=== PATIENT | female | born 1950 | race African-American/Black ===

== ENCOUNTER 2017-10-29 09:32 | Inpatient (IN) ==
[2017-10-29] MEDS ORDERED: HYDROmorphone 2 MG/1 ML VIAL IV STA ×2 (10:18→12:58)
[2017-10-29] MEDS ORDERED: ONDANSETRON 4 MG/2 ML VIAL IV STA ×2 (10:18→12:58)
[2017-10-29] MEDS ORDERED: SODIUM CHLORIDE 0.9% 1,000 ML IV STA (10:18)
[2017-10-29] MEDS ORDERED: ONDANSETRON 4 MG/2 ML VIAL ONE ×2 (10:55→13:14)
[2017-10-29] MEDS ORDERED: HYDROmorphone 2 MG/1 ML VIAL ONE (10:55)
[2017-10-29 10:56] LABS: Basophils # 0.1 10*3/uL (0.0-0.2); Basophils % 0.5 % (0.0-0.8); Eosinophils % 0.1 % (0.00-10.9); Hematocrit 31.3 VOL% (35.7-47.0); Hemoglobin 10.9 GM/DL (12.0-16.0); Immature Granulocytes % 12.5 %; Immature Granulocytes Absolute 3.06 #; Lymphocytes # 2.1 10*3/uL (1.4-4.0); Lymphocytes % 8.7 % (21.3-54.2); Mean Corpuscular HGB Conc 34.8 GM/DL (32-36); Mean Corpuscular Hemoglobin 29 PG (27-34); Mean Corpuscular Volume 84.1 FL (87-102); Mean Platelet Volume 12.6 FL (9.6-12.0); Monocytes # 0.8 10*3/uL (0.11-0.8); Monocytes % 3.2 % (1.7-12.7); Neutrophils # 18.4 10*3/uL (1.4-7.4); Platelet Count 124 T/CUMM (130-400); Red Blood Count 3.72 MC/CUMM (3.8-5.5); Red Cell Distribution Width 16.6 % (9.3-17.3); White Blood Count 24.5 T/CUMM (4-12)
[2017-10-29 11:23] LABS: Albumin 4.3 G/DL (3.4-5.0); Bilirubin,Total 1.2 MG/DL (0.2-1.0); Calcium 10.2 MG/DL (8.5-10.1); Osmolality,Calculated 294.1 MOS/KG (273-304); Potassium 4.3 MMOL/L (3.5-5.1); Total Protein 8.1 G/DL (6.4-8.3)
[2017-10-29 11:47] LABS: Apearance,Urine CLEAR (Clear); Bacteria,Urine Occasional /HPF (Few); Bilirubin,Urine Negative (Negative); Blood, Urine Small mg/dL (Negative); Glucose,Urine (UA) Negative (Negative); Hyaline Casts,Urine 2 /LPF (0-3); Ketones,Urine Negative (Negative); Mucus,Urine Occasional /LPF (Occasional); Nitrite,Urine Negative (Negative); Protein,Urine 30 MG/DL; Squamous Epithelial Cell,Urine Occasional /HPF (0-10); Urine Color Yellow (Yellow); Urine Urobilinogen < 2.0 EU/DL (0.2-1.0); WBC,Urine 1 /HPF (0-6)
[2017-10-29 11:54] LABS: Band Neutrophils 5 % (0-10); Hypochromasia 1+; Lymphocytes 9 % (20-55); Polychromasia Slight; Segmented Neutrophils 80 % (50-85); Total Cells Counted 100
[2017-10-29 11:55] LABS: Platelet Estimate Decreased
[2017-10-29] MEDS ORDERED: cefTRIAXone 500 MG VIAL ONE (12:13)
[2017-10-29] MEDS ORDERED: diphenhydrAMINE CAP 25 MG CAPSULE PO PRN (13:22)
[2017-10-29] MEDS ORDERED: ONDANSETRON 4 MG/2 ML VIAL IV PRN (13:22)
[2017-10-29] MEDS ORDERED: METHYLPREDNISOLONE 4 MG PO SCH (16:30)
[2017-10-29] MEDS: SODIUM CHLORIDE 0.45% 1,000 ML IV SCH (17:07)
[2017-10-29] MEDS: guaiFENesin/DM ER 600-30 MG TABLET PO SCH (17:14)
[2017-10-29] MEDS: IBUPROFEN 800 MG TABLET PO SCH (20:48)
[2017-10-29] MEDS: DILTIAZEM CD 180 MG CAPSULE PO SCH (20:48)
[2017-10-29] MEDS: PANTOPRAZOLE 40 MG TABLET PO SCH (20:49)
[2017-10-30] MEDS: guaiFENesin/DM ER 600-30 MG TABLET PO SCH ×4 (00:46→17:42)
[2017-10-30 07:14] LABS: Basophils % 0.2 % (0.0-0.8); Eosinophils # 0.3 10*3/uL (0.0-0.87); Eosinophils % 1.6 % (0.00-10.9); Hematocrit 23.9 VOL% (35.7-47.0); Hemoglobin 8.5 GM/DL (12.0-16.0); Immature Granulocytes % 5.9 %; Immature Granulocytes Absolute 0.96 #; Lymphocytes # 2.4 10*3/uL (1.4-4.0); Lymphocytes % 14.5 % (21.3-54.2); Mean Corpuscular HGB Conc 35.6 GM/DL (32-36); Mean Corpuscular Hemoglobin 29 PG (27-34); Mean Corpuscular Volume 82.1 FL (87-102); Mean Platelet Volume 11.9 FL (9.6-12.0); Monocytes # 0.6 10*3/uL (0.11-0.8); Monocytes % 3.6 % (1.7-12.7); NRBC # 0.26 10*3/uL; Neutrophils # 12.1 10*3/uL (1.4-7.4); Neutrophils % 74.2 % (38.7-73.9); Red Blood Count 2.91 MC/CUMM (3.8-5.5); Red Cell Distribution Width 16.3 % (9.3-17.3); White Blood Count 16.3 T/CUMM (4-12)
[2017-10-30 07:19] LABS: Platelet Count 64 T/CUMM (130-400)
[2017-10-30 07:35] LABS: Hypochromasia 2+; Macrocytosis 1+; Target Cells Slight
[2017-10-30 07:36] LABS: Polychromasia Slight
[2017-10-30 08:14] LABS: Albumin 3.4 G/DL (3.4-5.0); Bilirubin,Total 1.8 MG/DL (0.2-1.0); Calcium 8.6 MG/DL (8.5-10.1); Magnesium 1.8 MG/DL (1.8-2.4); Osmolality,Calculated 293.3 MOS/KG (273-304); Potassium 4.3 MMOL/L (3.5-5.1); Total Protein 6.4 G/DL (6.4-8.3)
[2017-10-30] MEDS ORDERED: PANTOPRAZOLE 40 MG TABLET PO SCH (09:00)
[2017-10-30] MEDS: DILTIAZEM CD 180 MG CAPSULE PO SCH ×2 (09:31→20:47)
[2017-10-30] MEDS: IBUPROFEN 800 MG TABLET PO SCH ×3 (09:34→20:47)
[2017-10-30] MEDS: ATENOLOL 100 MG TABLET PO SCH (09:35)
[2017-10-30] MEDS: PANTOPRAZOLE 40 MG TABLET PO SCH ×2 (09:35→20:47)
[2017-10-30] MEDS: CALCITRIOL 0.25 MCG CAPSULE PO SCH (09:35)
[2017-10-30] MEDS: SODIUM CHLORIDE 0.45% 1,000 ML IV SCH ×2 (09:37→18:17)
[2017-10-30] MEDS: VALSARTAN/HCTZ 80-12.5 MG TABLET PO SCH (13:08)
[2017-10-30 13:53] LABS: Hepatitis A Ab IgM Quant 0.13 Index; Hepatitis A Ab IgM Result Negative (Negative); Hepatitis B Core IgM Quant 0.15 Index; Hepatitis B Core IgM Result Negative (Negative); Hepatitis B Surface Ag Quant 0.15 Index; Hepatitis B Surface Ag Result Negative (Negative); Hepatitis C Virus Ab Quant 0.14 Index; Hepatitis C Virus Ab Result Negative (Negative)
[2017-10-31] MEDS: guaiFENesin/DM ER 600-30 MG TABLET PO SCH ×5 (02:14→23:56)
[2017-10-31] MEDS: SODIUM CHLORIDE 0.45% 1,000 ML IV SCH ×5 (02:34→17:11)
[2017-10-31 05:11] LABS: Basophils % 0.3 % (0.0-0.8); Eosinophils # 0.7 10*3/uL (0.0-0.87); Eosinophils % 4.3 % (0.00-10.9); Hematocrit 21.5 VOL% (35.7-47.0); Hemoglobin 7.6 GM/DL (12.0-16.0); Immature Granulocytes % 4.4 %; Immature Granulocytes Absolute 0.67 #; Lymphocytes # 2.4 10*3/uL (1.4-4.0); Lymphocytes % 15.9 % (21.3-54.2); Mean Corpuscular HGB Conc 35.3 GM/DL (32-36); Mean Corpuscular Hemoglobin 29 PG (27-34); Mean Corpuscular Volume 81.4 FL (87-102); Mean Platelet Volume 12.4 FL (9.6-12.0); Monocytes # 0.7 10*3/uL (0.11-0.8); Monocytes % 4.5 % (1.7-12.7); NRBC # 0.33 10*3/uL; Neutrophils # 10.7 10*3/uL (1.4-7.4); Neutrophils % 70.6 % (38.7-73.9); Platelet Count 52 T/CUMM (130-400); Red Blood Count 2.64 MC/CUMM (3.8-5.5); Red Cell Distribution Width 16.7 % (9.3-17.3); White Blood Count 15.1 T/CUMM (4-12)
[2017-10-31 05:47] LABS: Band Neutrophils 2 % (0-10); Eosinophils 5 % (0-10); Lymphocytes 11 % (20-55); Nucleated Red Blood Cells 6 (0-5); Segmented Neutrophils 79 % (50-85); Total Cells Counted 100
[2017-10-31 05:48] LABS: Hypochromasia Slight; Microcytosis 1+; Platelet Estimate Decreased; Polychromasia Slight; Target Cells Slight
[2017-10-31 05:50] LABS: Albumin 3.1 G/DL (3.4-5.0); Calcium 8.3 MG/DL (8.5-10.1); Osmolality,Calculated 287.5 MOS/KG (273-304); Potassium 4.4 MMOL/L (3.5-5.1); Total Protein 5.9 G/DL (6.4-8.3)
[2017-10-31] MEDS ORDERED: SODIUM CHLORIDE 0.9% 1,000 ML IV PRN (08:19)
[2017-10-31] MEDS: DILTIAZEM CD 180 MG CAPSULE PO SCH ×2 (08:24→20:45)
[2017-10-31] MEDS: CALCITRIOL 0.25 MCG CAPSULE PO SCH (08:24)
[2017-10-31] MEDS: IBUPROFEN 800 MG TABLET PO SCH ×3 (08:24→20:45)
[2017-10-31] MEDS: ATENOLOL 100 MG TABLET PO SCH (08:26)
[2017-10-31] MEDS: VALSARTAN/HCTZ 80-12.5 MG TABLET PO SCH (08:26)
[2017-10-31] MEDS: PANTOPRAZOLE 40 MG TABLET PO SCH ×2 (08:26→20:45)
[2017-10-31] MEDS: MORPHINE 2 MG/1 ML SYRINGE IV PRN (17:08)
[2017-10-31] MEDS ORDERED: ENOXAPARIN 80 MG/0.8 ML SYRINGE SUBCUT SCH (18:00)
[2017-11-01 04:55] LABS: Basophils % 0.3 % (0.0-0.8); Eosinophils # 0.5 10*3/uL (0.0-0.87); Eosinophils % 4.5 % (0.00-10.9); Hematocrit 27.5 VOL% (35.7-47.0); Hemoglobin 9.8 GM/DL (12.0-16.0); Immature Granulocytes % 2.2 %; Immature Granulocytes Absolute 0.25 #; Lymphocytes # 1.8 10*3/uL (1.4-4.0); Lymphocytes % 16.2 % (21.3-54.2); Mean Corpuscular HGB Conc 35.6 GM/DL (32-36); Mean Corpuscular Hemoglobin 29 PG (27-34); Mean Corpuscular Volume 80.2 FL (87-102); Monocytes # 0.5 10*3/uL (0.11-0.8); NRBC # 0.27 10*3/uL; Neutrophils # 8.2 10*3/uL (1.4-7.4); Neutrophils % 72.8 % (38.7-73.9); Red Blood Count 3.43 MC/CUMM (3.8-5.5); Red Cell Distribution Width 15.9 % (9.3-17.3); White Blood Count 11.3 T/CUMM (4-12)
[2017-11-01 05:26] LABS: Albumin 2.9 G/DL (3.4-5.0); Bilirubin,Total 2.4 MG/DL (0.2-1.0); Osmolality,Calculated 288.4 MOS/KG (273-304); Potassium 4.2 MMOL/L (3.5-5.1); Total Protein 5.9 G/DL (6.4-8.3)
[2017-11-01 05:48] LABS: Platelet Count 37 T/CUMM (130-400)
[2017-11-01 05:54] LABS: Hypochromasia 1+
[2017-11-01 05:55] LABS: Microcytosis 1+; Platelet Estimate Decreased; Polychromasia Slight; Spherocytes Slight; Target Cells Slight
[2017-11-01] MEDS: guaiFENesin/DM ER 600-30 MG TABLET PO SCH ×3 (06:23→18:04)
[2017-11-01] MEDS: MORPHINE 2 MG/1 ML SYRINGE IV PRN (07:26)
[2017-11-01] MEDS: methylPREDNISolone SOD SUC 125 MG/2 ML VIAL IV SCH ×2 (09:47→21:03)
[2017-11-01] MEDS: IBUPROFEN 800 MG TABLET PO SCH ×3 (09:47→21:02)
[2017-11-01] MEDS: ATENOLOL 100 MG TABLET PO SCH (09:47)
[2017-11-01] MEDS: DILTIAZEM CD 180 MG CAPSULE PO SCH ×2 (09:48→21:02)
[2017-11-01] MEDS: VALSARTAN/HCTZ 80-12.5 MG TABLET PO SCH (09:48)
[2017-11-01] MEDS: PANTOPRAZOLE 40 MG TABLET PO SCH ×2 (09:48→21:02)
[2017-11-01] MEDS: CALCITRIOL 0.25 MCG CAPSULE PO SCH (09:48)
[2017-11-02] MEDS: guaiFENesin/DM ER 600-30 MG TABLET PO SCH ×2 (01:12→06:18)
[2017-11-02 03:35] LABS: Basophils % 0.2 % (0.0-0.8); Eosinophils % 0.2 % (0.00-10.9); Hematocrit 28.9 VOL% (35.7-47.0); Hemoglobin 10.1 GM/DL (12.0-16.0); Immature Granulocytes % 5.1 %; Immature Granulocytes Absolute 0.64 #; Lymphocytes % 15.5 % (21.3-54.2); Mean Corpuscular HGB Conc 34.9 GM/DL (32-36); Mean Corpuscular Hemoglobin 29 PG (27-34); Mean Corpuscular Volume 82.3 FL (87-102); Monocytes # 0.2 10*3/uL (0.11-0.8); Monocytes % 1.8 % (1.7-12.7); NRBC # 0.29 10*3/uL; Neutrophils # 9.8 10*3/uL (1.4-7.4); Neutrophils % 77.2 % (38.7-73.9); Red Blood Count 3.51 MC/CUMM (3.8-5.5); Red Cell Distribution Width 16.4 % (9.3-17.3); White Blood Count 12.6 T/CUMM (4-12)
[2017-11-02 03:38] LABS: INR 0.9
[2017-11-02 03:45] LABS: Platelet Count 38 T/CUMM (130-400)
[2017-11-02 04:06] LABS: Albumin 3.3 G/DL (3.4-5.0); Bilirubin,Total 1.7 MG/DL (0.2-1.0); Calcium 8.6 MG/DL (8.5-10.1); Osmolality,Calculated 301.1 MOS/KG (273-304); Potassium 4.3 MMOL/L (3.5-5.1); Total Protein 6.4 G/DL (6.4-8.3)
[2017-11-02 04:26] LABS: Band Neutrophils 23 % (0-10); Lymphocytes 15 % (20-55); Segmented Neutrophils 60 % (50-85); Total Cells Counted 100
[2017-11-02 04:27] LABS: Anisocytosis 1+; Poikilocytosis 1+; Polychromasia 1+; Target Cells 1+
[2017-11-02] MEDS: PANTOPRAZOLE 40 MG TABLET PO SCH (09:48)
[2017-11-02] MEDS: CALCITRIOL 0.25 MCG CAPSULE PO SCH (09:48)
[2017-11-02] MEDS: DILTIAZEM CD 180 MG CAPSULE PO SCH (09:49)
[2017-11-02] MEDS: ATENOLOL 100 MG TABLET PO SCH (09:49)
[2017-11-02] MEDS: VALSARTAN/HCTZ 80-12.5 MG TABLET PO SCH (09:50)
[2017-11-02] MEDS: IBUPROFEN 800 MG TABLET PO SCH (09:50)
[2017-11-02] MEDS: methylPREDNISolone SOD SUC 125 MG/2 ML VIAL IV SCH (09:50)
[2017-11-02 12:43] VITALS: BP 166/73
[2017-11-07 10:01] LABS: Variant 50.5 = Hb S %
[2017-11-07 11:08] LABS: Hemoglobin C (Alkaline) 45.1 %; Hemoglobin F (Alkaline) 7.9 %
== END 2017-11-02 13:00 | disposition home or self-care (01) | DRG 812 ==
LOC: N.ED 09:32 → N.EDINP 12:16 → N.4E 14:32
PROVIDERS: ADMIT Internal Medicine; ATTEND Internal Medicine

== ENCOUNTER 2018-04-13 19:38 | Inpatient (IN) ==
[2018-04-13] MEDS ORDERED: SODIUM CHLORIDE 0.9% 1,000 ML IV STA (20:10)
[2018-04-13] MEDS ORDERED: fentaNYL 100 MCG/2 ML VIAL IV STA (20:10)
[2018-04-13] MEDS ORDERED: hydrALAZINE 20 MG/1 ML VIAL IV STA (20:10)
[2018-04-13 20:37] LABS: Basophils # 0.1 10*3/uL (0.0-0.2); Basophils % 0.3 % (0.0-0.8); Eosinophils # 0.1 10*3/uL (0.0-0.87); Eosinophils % 0.3 % (0.00-10.9); Hematocrit 29.7 VOL% (35.7-47.0); Hemoglobin 10.4 GM/DL (12.0-16.0); Immature Granulocytes Absolute 2.98 #; Lymphocytes # 3.2 10*3/uL (1.4-4.0); Lymphocytes % 13.8 % (21.3-54.2); Mean Corpuscular Hemoglobin 30 PG (27-34); Mean Corpuscular Volume 86.6 FL (87-102); Mean Platelet Volume 11.9 FL (9.6-12.0); Monocytes # 1.1 10*3/uL (0.11-0.8); Monocytes % 4.7 % (1.7-12.7); NRBC # 0.19 10*3/uL; Neutrophils # 15.6 10*3/uL (1.4-7.4); Neutrophils % 67.9 % (38.7-73.9); Platelet Count 176 T/CUMM (130-400); Red Blood Count 3.43 MC/CUMM (3.8-5.5); Red Cell Distribution Width 16.7 % (9.3-17.3)
[2018-04-13 20:55] LABS: Albumin 3.6 G/DL (3.4-5.0); Bilirubin,Total 0.7 MG/DL (0.2-1.0); Calcium 9.2 MG/DL (8.5-10.1); Potassium 3.9 MMOL/L (3.5-5.1); Total Protein 7.2 G/DL (6.4-8.3)
[2018-04-13 21:03] LABS: Band Neutrophils 3 % (0-10); Eosinophils 1 % (0-10); Lymphocytes 14 % (20-55); Nucleated Red Blood Cells 1 (0-5); Segmented Neutrophils 75 % (50-85); Total Cells Counted 100
[2018-04-13 21:04] LABS: Hypochromasia Slight; Platelet Estimate Adequate; Polychromasia Slight; Target Cells Few; Tear Drop Cells Slight
[2018-04-13 21:23] LABS: Apearance,Urine CLEAR (Clear); Bacteria,Urine Occasional /HPF (Few); Bilirubin,Urine Negative (Negative); Blood, Urine Negative (Negative); Glucose,Urine (UA) Negative (Negative); Ketones,Urine Negative (Negative); Mucus,Urine Occasional /LPF (Occasional); Nitrite,Urine Negative (Negative); Protein,Urine Negative; RBC,Urine <1 /HPF (0-4); Squamous Epithelial Cell,Urine Occasional /HPF (0-10); Urine Color Yellow (Yellow); Urine Specific Gravity 1.009 (1.001-1.035); Urine Urobilinogen < 2.0 EU/DL (0.2-1.0); WBC,Urine <1 /HPF (0-6)
[2018-04-13] MEDS ORDERED: ONDANSETRON 4 MG/2 ML VIAL IV STA (21:33)
[2018-04-13] MEDS ORDERED: MORPHINE 4 MG/1 ML VIAL IV STA (21:33)
[2018-04-13] MEDS ORDERED: MORPHINE 4 MG/1 ML VIAL ONE (21:34)
[2018-04-13 22:09] LABS: Lactic Acid 2.6 MMOL/L (0.4-2.0)
[2018-04-13] MEDS ORDERED: PIPERACILLIN/TAZOBACTAM 3,375 MG in SODIUM CHLORIDE 0.9% 100 ML IV STA (22:28)
[2018-04-14] MEDS ORDERED: ONDANSETRON 4 MG/2 ML VIAL IV PRN (00:13)
[2018-04-14] MEDS: SODIUM CHLORIDE 0.45% 1,000 ML IV SCH ×3 (02:20→19:05)
[2018-04-14 02:37] LABS: Lactic Acid 2.5 MMOL/L (0.4-2.0)
[2018-04-14] MEDS: MORPHINE 4 MG/1 ML VIAL IV PRN ×3 (03:56→16:21)
[2018-04-14] MEDS: hydroCHLOROthiazide 25 MG TABLET PO SCH (08:45)
[2018-04-14] MEDS: ATENOLOL 100 MG TABLET PO SCH (08:45)
[2018-04-14] MEDS: ENOXAPARIN 40 MG/0.4 ML SYRINGE SUBCUT SCH (08:45)
[2018-04-14] MEDS: CALCITRIOL 0.25 MCG CAPSULE PO SCH (08:45)
[2018-04-14] MEDS: VALSARTAN 160 MG TABLET PO SCH (08:46)
[2018-04-14] MEDS: PANTOPRAZOLE 40 MG TABLET PO SCH (08:46)
[2018-04-14] MEDS: DILTIAZEM CD 180 MG CAPSULE PO SCH ×2 (08:46→20:50)
[2018-04-14 09:05] LABS: Basophils # 0.1 10*3/uL (0.0-0.2); Basophils % 0.3 % (0.0-0.8); Eosinophils % 0.2 % (0.00-10.9); Hematocrit 27.3 VOL% (35.7-47.0); Hemoglobin 9.8 GM/DL (12.0-16.0); Immature Granulocytes % 9.4 %; Immature Granulocytes Absolute 1.81 #; Lymphocytes % 10.5 % (21.3-54.2); Mean Corpuscular HGB Conc 35.9 GM/DL (32-36); Mean Corpuscular Hemoglobin 31 PG (27-34); Mean Corpuscular Volume 85.8 FL (87-102); Mean Platelet Volume 11.5 FL (9.6-12.0); Monocytes # 0.8 10*3/uL (0.11-0.8); Monocytes % 4.3 % (1.7-12.7); NRBC # 0.28 10*3/uL; Neutrophils # 14.6 10*3/uL (1.4-7.4); Neutrophils % 75.3 % (38.7-73.9); Platelet Count 114 T/CUMM (130-400); Red Blood Count 3.18 MC/CUMM (3.8-5.5); Red Cell Distribution Width 16.6 % (9.3-17.3); White Blood Count 19.3 T/CUMM (4-12)
[2018-04-14 09:29] LABS: Lactic Acid 2.7 MMOL/L (0.4-2.0)
[2018-04-14 09:34] LABS: Band Neutrophils 3 % (0-10); Hypochromasia 1+; Lymphocytes 15 % (20-55); Nucleated Red Blood Cells 1 (0-5); Ovalocytes Slight; Platelet Estimate Decreased; Segmented Neutrophils 76 % (50-85); Total Cells Counted 100
[2018-04-14 10:12] LABS: Albumin 3.5 G/DL (3.4-5.0); Bilirubin,Direct 0.24 MG/DL (0.0-0.20); Bilirubin,Indirect 0.7 MG/DL (0.0-1.0); Bilirubin,Total 0.9 MG/DL (0.2-1.0); Calcium 8.8 MG/DL (8.5-10.1); Potassium 4.2 MMOL/L (3.5-5.1); Total Protein 6.9 G/DL (6.4-8.3)
[2018-04-15] MEDS: MORPHINE 4 MG/1 ML VIAL IV PRN ×2 (02:18→17:25)
[2018-04-15] MEDS: SODIUM CHLORIDE 0.45% 1,000 ML IV SCH ×3 (03:05→20:04)
[2018-04-15] MEDS: DILTIAZEM CD 180 MG CAPSULE PO SCH ×2 (08:21→20:22)
[2018-04-15] MEDS: hydroCHLOROthiazide 25 MG TABLET PO SCH (08:21)
[2018-04-15] MEDS: CALCITRIOL 0.25 MCG CAPSULE PO SCH (08:21)
[2018-04-15] MEDS: ATENOLOL 100 MG TABLET PO SCH (08:22)
[2018-04-15] MEDS: ENOXAPARIN 40 MG/0.4 ML SYRINGE SUBCUT SCH (08:22)
[2018-04-15] MEDS: PANTOPRAZOLE 40 MG TABLET PO SCH (08:22)
[2018-04-15] MEDS: VALSARTAN 160 MG TABLET PO SCH (08:22)
[2018-04-15] MEDS: ALLOPURINOL 300 MG TABLET PO SCH (11:52)
[2018-04-16] MEDS: SODIUM CHLORIDE 0.45% 1,000 ML IV SCH (04:04)
[2018-04-16 05:45] LABS: Basophils % 0.2 % (0.0-0.8); Eosinophils # 0.4 10*3/uL (0.0-0.87); Eosinophils % 3.7 % (0.00-10.9); Hematocrit 23.9 VOL% (35.7-47.0); Hemoglobin 8.7 GM/DL (12.0-16.0); Immature Granulocytes % 2.7 %; Immature Granulocytes Absolute 0.26 #; Lymphocytes # 2.3 10*3/uL (1.4-4.0); Lymphocytes % 24.2 % (21.3-54.2); Mean Corpuscular HGB Conc 36.4 GM/DL (32-36); Mean Corpuscular Hemoglobin 31 PG (27-34); Mean Corpuscular Volume 84.2 FL (87-102); Mean Platelet Volume 11.2 FL (9.6-12.0); Monocytes # 0.6 10*3/uL (0.11-0.8); NRBC # 0.02 10*3/uL; Neutrophils % 63.2 % (38.7-73.9); Platelet Count 60 T/CUMM (130-400); Red Blood Count 2.84 MC/CUMM (3.8-5.5); Red Cell Distribution Width 16.3 % (9.3-17.3); White Blood Count 9.5 T/CUMM (4-12)
[2018-04-16 06:05] LABS: Hypochromasia 1+; Platelet Estimate Decreased; Target Cells Few
[2018-04-16 06:24] LABS: Albumin 3.2 G/DL (3.4-5.0); Calcium 8.5 MG/DL (8.5-10.1); Osmolality,Calculated 283.3 MOS/KG (273-304); Potassium 3.8 MMOL/L (3.5-5.1); Total Protein 6.1 G/DL (6.4-8.3)
[2018-04-16] MEDS: ATENOLOL 100 MG TABLET PO SCH ×2 (07:54→08:07)
[2018-04-16] MEDS: CALCITRIOL 0.25 MCG CAPSULE PO SCH ×2 (07:54→08:06)
[2018-04-16] MEDS: VALSARTAN 160 MG TABLET PO SCH ×2 (07:54→08:06)
[2018-04-16] MEDS: DILTIAZEM CD 180 MG CAPSULE PO SCH ×2 (07:55→08:05)
[2018-04-16] MEDS: PANTOPRAZOLE 40 MG TABLET PO SCH ×2 (07:55→08:06)
[2018-04-16] MEDS: ENOXAPARIN 40 MG/0.4 ML SYRINGE SUBCUT SCH ×2 (07:56→08:06)
[2018-04-16] MEDS: ALLOPURINOL 300 MG TABLET PO SCH ×2 (07:56→08:07)
[2018-04-16 08:23] VITALS: BP 163/84
[2018-04-17 15:31] LABS: Ehrlichia Chaffeensis (HME)IgG <1:64 titer (<1:64)
[2018-04-20 21:51] LABS: Q Fever IgM Phase I Screen NEGATIVE (NEGATIVE); Q Fever IgM Phase II Screen NEGATIVE (NEGATIVE)
== END 2018-04-16 09:30 | disposition home or self-care (01) | DRG 812 ==
LOC: N.ED 19:38 → N.EDINP 04-14 00:13 → N.2E 04-14 01:27
PROVIDERS: ADMIT Internal Medicine; ATTEND Internal Medicine